=== PATIENT | male | born 1990 | race Two or more races ===

== ENCOUNTER 2025-08-15 21:22 | Emergency (ER) | payer OTHER ==
[~2025-08-15] VITALS: Ht 167.6 cm; Wt 79.5 kg
[2025-08-15 21:29] VITALS: TEMP 98.2
[2025-08-15 22:33] LABS: PLATELET COUNT (AUTO) 246 K/uL (150-450); RED BLOOD CELL COUNT(AUTO) 5.56 MIL/uL (4.50-5.90); RED CELL DISTRIBUTION WIDTH 13.4 % (11.5-14.5); WHITE BLOOD COUNT (AUTO) 9.7 K/uL (4.5-11.0)
[2025-08-15 22:35] LABS: CALCIUM, TOTAL 9.6 mg/dL (8.8-10.5); CREATININE 0.86 mg/dL (0.60-1.30); GLOMERULAR FILTR. RATE CALC > 60 mL/min (>60); GLUCOSE,RANDOM 99 mg/dL (70-110); SODIUM SERUM 140 mmol/L (136-145); UREA NITROGEN, BLOOD 13 mg/dL (7-18)
[2025-08-15 22:39] LABS: ASPARTATE AMINOTRANSFERASE 19.0 U/L (15-37); TOTAL PROTEIN, SERUM 8.2 g/dL (6.4-8.2)
[2025-08-16] MEDS: FAMOTIDINE 20 MG TABLET PO ONE (00:51)
[2025-08-16] MEDS: MAG HYDROX/ALUMINUM HYD/SIMETH 30 ML SUSPENSION UDCUP PO ONE (00:52)
[2025-08-16 02:23] LABS: APPEARANCE,URINE CLEAR (CLEAR); GLUCOSE, URINE (UA) NEGATIVE (NEGATIVE); LEUKOCYTE ESTERASE ,URINE NEGATIVE (NEGATIVE); NITRATE,URINE NEGATIVE (NEGATIVE); OCCULT BLOOD,URINE NEGATIVE (NEGATIVE); SPECIFIC GRAVITIY, URINE 1.010 (1.003-1.030)
[2025-08-16 05:38] VITALS: BP 120/65; PULSE 92; RESP 14; O2SAT 100
== END 2025-08-16 05:43 ==
LOC: EMS 21:22
DX: K21.9 Gastro-esophageal reflux disease without esophagitis (principal); R10.13 Epigastric pain; R11.0 Nausea; Z85.47 Personal history of malignant neoplasm of testis; Z90.49 Acquired absence of other specified parts of digestive tract; Z98.890 Other specified postprocedural states
CPT/HCPCS: 71250; 72192; 74150; 80048; 80076; 81003; 83690; 85025; 93005; 99284